=== PATIENT | female | born 1955 | race Caucasian/White ===

== ENCOUNTER → 2016-06-30 | Outpatient (CLI) | payer MEDICAID | LOC: OD 10:35 | PROVIDERS: ATTEND Physician Assistant | DX: R10.30 Lower abdominal pain, unspecified (principal) | CPT/HCPCS: 74000 ==

== ENCOUNTER 2016-07-21 07:13 | Day surgery (SDC) | payer MEDICAID ==
[~2016-07-21 07:13] MED LIST: PROPOFOL INJ 200 MG/20 ML VIAL IV ONE
[2016-07-21] MEDS ORDERED: LIDOCAINE 2% INJ-PF (20 MG/ML) 10 ML AMPUL ONE (08:44)
[2016-07-21] MEDS ORDERED: ONDANSETRON HCL INJ/PF 4 MG/2 ML SDV ONE (08:45)
[2016-07-21] MEDS ORDERED: PROPOFOL INJ 200 MG/20 ML VIAL IV ONE (08:45)
[2016-07-21] MEDS ORDERED: MORPHINE SULFATE 10 MG/ML INJ IV PRN (10:31)
[2016-07-21] MEDS ORDERED: MEPERIDINE HCL/PF INJ 25 MG/1 ML DISP.SYRIN IV PRN (10:31)
[2016-07-21] MEDS ORDERED: FENTANYL CITRATE INJ/PF 100 MCG/2 ML AMPUL IV PRN ×3 (10:31)
[2016-07-21] MEDS ORDERED: DIPHENHYDRAMINE HCL 50 MG/ML VIAL IV PRN (10:31)
[2016-07-21] MEDS ORDERED: PROMETHAZINE HCL INJ 25 MG/1 ML VIAL IV PRN ×2 (10:31)
--- NOTE | 2016-07-21 10:38 | Operative Report ---
Operative Report DATE OF SURGERY: 07/21/16 Operative Report: The risks, benefits and alternatives of the procedure including risks of bleeding, perforation requiring surgery are explained to the patient detail and informed consent is obtained. Patient is taken back to the operating room , she is placed in the left lateral decubital position. Time out is called. sedation medications are provided by anesthesia A rectal examination is done Scope scope was placed and advance to the cecum. Cecum is identified by the usual anatomical landmarks including the ileocecal valve as well as the appendiceal office. Prep essentially pretty good. Photo documentations obtained. The scope was then sequentially pulled back via the various segments of the colon including the ascending colon, hepatic flexure, transverse colon, splenic flexure, descending colon and finally into the rectosigmoid colon. Retroflexion maneuvers performed. Patient has a very redundant, adynamic colon. PREOPERATIVE DIAGNOSIS: Change of bowel habits, chronic constipation. Previous colonoscopy incomplete. Rule out lesion on the right side of the colon POSTOPERATIVE DIAGNOSIS: Mild inflammation noted on the ileocecal valve otherwise normal colonoscopy except for what is mentioned above. No AVMs, diverticulosis noted. Internal hemorrhoids are visualized. OPERATION: Colonoscopy with biopsy SURGEON: DEDE DORANTES ANESTHESIA: LMAC TISSUE REMOVED OR ALTERED: Colon specimens times to obtained COMPLICATIONS: None. ESTIMATED BLOOD LOSS: none. INTRAOPERATIVE FINDINGS: As described above. PROCEDURE: Patient tolerated the procedure well. No immediate postprocedure complications are noted. Patient is discharged in good condition. Discharge date 07/21/2016. Discharge diet: Regular. Discharge activity: Regular. Follow-up in 2-3 weeks to discuss findings. Patient is instructed to call the office or proceed to the emergency room after any further problems or questions. We'll follow-up on biopsy
[2016-07-21] MEDS ORDERED: PROMETHAZINE HCL INJ 25 MG/1 ML VIAL INJ PRN (10:45)
[2016-07-21] MEDS ORDERED: SIMETHICONE 80 MG TAB.CHEW PO PRN (10:45)
[2016-07-21] MEDS ORDERED: ACETAMINOPHEN 325 MG TABLET PO PRN (10:45)
[2016-07-21 12:53] VITALS: BP 105/67
== END 2016-07-21 12:38 | disposition home or self-care (01) ==
LOC: OROUT 07:13
PROVIDERS: ATTEND Internal Medicine Gastroenterology
PROC: 0DBF8ZX Excision of Right Large Intestine, Via Natural or Artificial Opening Endoscopic, Diagnostic (ICD-10-PCS; principal; 2016-07-21 09:15)
DX: K62.89 Other specified diseases of anus and rectum (principal); T40.2X5A Adverse effect of other opioids, initial encounter; K59.03 Drug induced constipation; Y92.9 Unspecified place or not applicable; K52.9 Noninfective gastroenteritis and colitis, unspecified; K64.8 Other hemorrhoids; I10 Essential (primary) hypertension; L40.9 Psoriasis, unspecified; Z88.6 Allergy status to analgesic agent; Z88.0 Allergy status to penicillin; Z88.8 Allergy status to other drugs, medicaments and biological substances; Z79.899 Other long term (current) drug therapy; Z87.891 Personal history of nicotine dependence
CPT/HCPCS: 45380; 88305 ×2; J2405; J2704; J3490; 810

== ENCOUNTER 2016-11-23 18:36 | Emergency (ER) | payer MEDICAID ==
[2016-11-23] MEDS ORDERED: ONDANSETRON 4 MG TAB.RAPDIS PO ONE (19:42)
[2016-11-23] MEDS ORDERED: MORPHINE SULFATE 10 MG/ML INJ IM ONE (19:42)
[2016-11-23 20:29] LABS: ABSOLUTE MONOCYTES (AUTO) 0.8 10^3/uL (0.1-1.4); ABSOLUTE NEUT (AUTO) 14.9 10^3/uL (1.7-8.2); BASOPHILS % (AUTO) 0.3 % (0-2); EOSINOPHILS % (AUTO) 0.1 % (0-6); HEMATOCRIT 39.6 % (36.0-47.0); HEMOGLOBIN 12.6 g/dL (12.0-15.5); HGB HCT DIFFERENCE -1.8; MEAN CORPUSCULAR HEMOGLOBIN 27.4 pg (27.0-33.4); MEAN CORPUSCULAR HGB CONC 31.9 g/dL (32.0-36.0); MEAN CORPUSCULAR VOLUME 86 fl (80-97); MONOCYTES % (AUTO) 4.7 % (3-13); RED BLOOD COUNT 4.62 10^6/uL (3.72-5.28); RED CELL DISTRIBUTION WIDTH 15.1 % (11.5-14.0); SEGMENTED NEUTROPHILS % (AUTO) 88.9 % (42-78); WHITE BLOOD COUNT 16.7 10^3/uL (4.0-10.5)
[2016-11-23 20:45] LABS: ALANINE AMINOTRANSFERASE 22 U/L (9-52); ALBUMIN 4.8 g/dL (3.5-5.0); ALKALINE PHOSPHATASE 126 U/L (38-126); ANION GAP 15 (5-19); ASPARTATE AMINO TRANSFERASE 18 U/L (14-36); BILIRUBIN,DIRECT 0.4 mg/dL (0.0-0.4); BILIRUBIN,TOTAL 0.7 mg/dL (0.2-1.3); BLOOD UREA NITROGEN 13 mg/dL (7-20); CALCIUM 9.8 mg/dL (8.4-10.2); CARBON DIOXIDE 23 mmol/L (22-30); CHLORIDE 106 mmol/L (98-107); CREATININE RESULT 0.91 mg/dL (0.52-1.25); GLUCOSE 124 mg/dL (75-110); POTASSIUM 4.2 mmol/L (3.6-5.0); SODIUM 143.8 mmol/L (137-145); TOTAL PROTEIN 8.6 g/dL (6.3-8.2)
--- NOTE | 2016-11-23 20:48 | RADIOLOGY REPORT (SQ) ---
EXAM DESCRIPTION: CT LTD RENAL STONE PROTOCOL ON COMPLETED DATE/TIME: 11/23/2016 8:30 pm REASON FOR STUDY: left flank and abd pain COMPARISON: None. TECHNIQUE: CT scan of the abdomen and pelvis performed without intravenous or oral contrast. Images reviewed with lung, soft tissue, and bone windows. Reconstructed coronal and sagittal MPR images revi ewed. All images stored on PACS. All CT scanners at this facility use dose modulation, iterative reconstruction, and/or weight based d osing when appropriate to reduce radiation dose to as low as reasonably achievable (ALARA). [facility]: Dose Right [facility]: CareDose [facility]: Dose Right [facility]: Teradose 4D [facility]: [email or web address] RADIATION DOSE: 6.13mGy. LIMITATIONS: None. FINDINGS: LOWER CHEST: No significant findings. No nodules or infiltrates. NON-CONTRASTED LIVER, SPLEEN, ADRENALS: Evaluation limited by lack of IV contrast. No identified sign ificant masses. PANCREAS: No masses. No peripancreatic inflammatory changes. GALLBLADDER: There is a single gallstone demonstrated. RIGHT KIDNEY AND URETER: No suspicious masses. Assessment limited by lack of IV contrast. No signif icant calcifications. No hydronephrosis or hydroureter. LEFT KIDNEY AND URETER: No suspicious masses. Assessment limited by lack of IV contrast. No signifi cant calcifications. There is left-sided hydronephrosis there is perinephric and periureteral stran ding. Findings suggest high-grade stenosis although again no calcifications are identified. AORTA AND RETROPERITONEUM: No aneurysm. No retroperitoneal masses or adenopathy. BOWEL AND PERITONEAL CAVITY: No obvious masses or inflammatory changes. No free fluid. APPENDIX: Normal. PELVIS, BLADDER, AND ABDOMINAL WALL:No abnormal masses. No free fluid. Bladder normal. BONES: No significant findings. OTHER: No other significant finding. IMPRESSION: Left-sided mild hydronephrosis with fairly extensive perinephric and periureteral strand ing. No renal or ureteral stones are identified. TECHNICAL DOCUMENTATION: JOB ID: [id number] Quality ID # [id number]: Final reports with documentation of one or more dose reduction techniques (e.g., Au tomated exposure control, adjustment of the mA and/or kV according to patient size, use of iterative reconstruction technique) 2010 [employer]- All Rights Reserved
[2016-11-23 21:05] LABS: APPEARANCE,URINE CLOUDY; BILIRUBIN,URINE NEGATIVE (NEGATIVE); GLUCOSE, URINE NEGATIVE (NEGATIVE); KETONES,URINE 20 mg/dL (NEGATIVE); LEUKOCYTE ESTERASE,URINE LARGE (NEGATIVE); NITRITE,URINE NEGATIVE (NEGATIVE); PROTEIN,URINE 100 mg/dL (NEGATIVE); URINE SPECIFIC GRAVITY 1.017; UROBILINOGEN,URINE NEGATIVE mg/dL (<2.0)
[2016-11-23] MEDS ORDERED: NORMAL SALINE 1000 ML 1,000 ML IV ONE (22:46)
[2016-11-23] MEDS ORDERED: CEFTRIAXONE INJ 1000 MG VIAL IV ONE (22:46)
--- NOTE | 2016-11-23 23:40 | ER Document Report ---
ED General - General Chief Complaint: Flank Pain Stated Complaint: BACK AND LEFT FLANK PAIN,NAUSEA Time Seen by Provider: 11/23/16 19:37 Notes: Patient is a 61-year-old female presents with complaint of left back pain that radiates to the left flank. She says that she had urinary urgency and frequency. No dysuria. No fevers. Positive vomiting. No diarrhea. No anterior abdominal pain. No other complaints at this time. TRAVEL OUTSIDE OF THE [place] IN LAST 30 DAYS: No - Related Data Allergies/Adverse Reactions: aspirin [Aspirin] Allergy (Severe, Verified 07/21/16 07:25) Coma NSAIDS (Non-Steroidal Anti-Inflamma [Nsaids] Allergy (Severe, Verified 07/21/16 07:25) trouble breathing rofecoxib [From Vioxx] Allergy (Severe, Verified 07/21/16 07:25) trouble breathing succinylcholine chloride [From Anectine] Allergy (Severe, Verified 07/21/16 07: 25) Coma Penicillins Allergy (Intermediate, Verified 07/21/16 07:25) tounge swelling, hives Past Medical History - Social History Smoking Status: Never Smoker Chew tobacco use (# tins/day): No Frequency of alcohol use: None Drug Abuse: None Family History: None - Past Medical History Cardiac Medical History: Denies: Hx Coronary Artery Disease, Hx Heart Attack, Hx Hypertension Pulmonary Medical History: Reports: Hx Pneumonia - In the past Denies: Hx Asthma, Hx Bronchitis, Hx COPD Neurological Medical History: Denies: Hx Cerebrovascular Accident, Hx Seizures Renal/ Medical History: Denies: Hx Peritoneal Dialysis Musculoskeltal Medical History: Reports Hx Arthritis - GENERALIZED Psychiatric Medical History: Reports: Hx Depression Past Surgical History: Reports: Hx Hysterectomy, Hx Orthopedic Surgery - Right shoulder - Immunizations Hx Diphtheria, Pertussis, Tetanus Vaccination: Yes Review of Systems - Review of Systems Notes: My Normal Review Basic REVIEW OF SYSTEMS: CONSTITUTIONAL : Denies fever, chills, or sweats. Denies recent illness. EENT: Denies eye, ear, throat, or mouth pain or symptoms. Denies nasal or sinus congestion. CARDIOVASCULAR: Denies chest pain. RESPIRATORY: Denies cough, cold, or chest congestion. Denies shortness of breath, difficulty breathing, or wheezing. GASTROINTESTINAL: Denies abdominal pain. Vomiting. GENITOURINARY: Urinary frequency. MUSCULOSKELETAL: Back pain SKIN: Denies rash or skin lesions. NEUROLOGICAL: Denies altered mental status or loss of consciousness. Denies headache. Denies weakness or paralysis or loss of use of either side. Denies problems with gait or speech. Denies sensory or motor loss. ALL OTHER SYSTEMS REVIEWED AND NEGATIVE. Physical Exam - Vital signs Vitals: Temp Pulse Resp BP Pulse Ox 98.5 F 74 22 H 156/94 H 98 11/23/16 19:09 11/23/16 19:09 11/23/16 19:09 11/23/16 19:09 11/23/16 19:09 - Notes Notes: General Appearance: Well nourished, alert, cooperative, no acute distress, no obvious discomfort. Well Appearing. Vitals: reviewed, See vital signs table. Head: no swelling or tenderness to the head Eyes: PERRL, EOMI, Conjuctiva clear Mouth: No decreasd moisture Lungs: No wheezing, No rales, No rhonci, No accessory muscle use, good air exchange bilaterally. Heart: Normal rate, Regular rythm, No murmur, no rub Back: Positive Olivier's sign on the left. Abdomen: Normal BS, soft, No rigidity, No abdominal tenderness, No guarding, no rebound, no abdominal masses, no organomegaly Extremities: strength 5/5 in all extremities, good pulses in all extremities, no swelling or tenderness in the extremities, no edema. Skin: warm, dry, appropriate color, no rash Neuro: speech clear, oriented x 3, normal affect, responds appropriately to questions. Course - Vital Signs Vital signs: Temp Pulse Resp BP Pulse Ox 98.5 F 74 22 H 156/94 H 98 11/23/16 19:09 11/23/16 19:09 11/23/16 19:09 11/23/16 19:09 11/23/16 19:09 - Laboratory Result Diagrams: 11/23/16 20:07 11/23/16 20:07 Laboratory results interpreted by me: 11/23/16 11/23/16 11/23/16 20:07 20:07 20:07 WBC 16.7 H MCHC 31.9 L RDW 15.1 H Seg Neutrophils % 88.9 H Lymphocytes % 6.0 L Absolute Neutrophils 14.9 H Glucose 124 H Total Protein 8.6 H Urine Protein 100 H Urine Ketones 20 H Urine Blood MODERATE H Ur Leukocyte Esterase LARGE H - Transfer of Care Notes: 11/24/16 00:07 Received IV fluids. Her vital signs remained normal. She continues to be nontoxic-appearing and says she feels improved. Patient will be treated for pyelonephritis. She is encouraged to return to ER immediately if she has worsening pain, fevers, vomiting, or appears unwell. Patient agrees with plan and will be discharged home. Dictation of this chart was performed using voice recognition software; therefore, there may be some unintended grammatical errors. Discharge - Discharge Clinical Impression: Pyelonephritis Condition: Good Disposition: HOME, SELF-CARE Additional Instructions: PYELONEPHRITIS: Your evaluation shows evidence of pyelonephritis. This is an infection in the kidney. Typical symptoms are fever, pain in the flank, pain on urination, and frequent urination. Many cases of pyelonephritis can be treated at home. Hospital care may be necessary for patients who are very ill, or elderly or . Pyelonephritis is treated with antibiotics. Be sure to take all the medication as prescribed. Drink plenty of liquids (about three quarts per day) . You may take acetaminophen for fever. You should feel significantly improved within two days. You should have a recheck of your urine in about one week to insure that the infection is gone. Return for a re-examination if your symptoms worsen in any way -- such as high fever, shaking chills, severe weakness or dizziness, severe pain, or inability to pass your urine. ANTINAUSEA MEDICATION: You have been given a medication to suppress nausea and vomiting. This type of medication can be given as a shot, pill, or suppository. It will usually last for many hours. Pills and shots usually last six to eight hours, suppositories last about 12 hours. For the typical illness, only one or two doses of the medication may be necessary. Mild lightheadedness may occur. This type of medicine can cause drowsiness. Do not drive or operate dangerous machinery while under its influence. Do not mix with alcohol. See your doctor at once if you have muscle spasms or tightness, or uncontrollable motions (particularly of the neck, mouth, or jaw). Persistent vomiting or severe lightheadedness should also be evaluated by the physician. ANTIBIOTIC THERAPY: You have been given an antibiotic prescription. It's important that you take all the medication, unless instructed otherwise by your physician. Failure to complete the entire course can result in relapse of your condition. Common side effects of antibiotics include nausea, intestinal cramping, or diarrhea. Women may develop vaginal yeast infections, and babies can get yeast (thrush) in the mouth following the use of antibiotics. Contact your physician if you develop significant side effects from this medication. Allergy to this antibiotic can result in hives, wheezing, faintness, or itching. If symptoms of allergy occur, stop the medication and call the doctor. ROCEPHIN: You have been given an injection of an antibiotic called Rocephin ( ceftriaxone). Sometimes the injection must be combined with antibiotic pills. For some infections, such as an uncomplicated ear infection, Rocephin provides all the antibiotic that's needed. The antibiotic will be in your body for about two days. For serious infections, we usually repeat doses of Rocephin daily. Side effects are very unusual following a shot. Women may develop vaginal yeast infections, and babies can get yeast (thrush) in the mouth following the use of antibiotics. Contact your physician if you have symptoms with this medication. Allergy to this antibiotic can result in hives, wheezing, faintness, or itching. If symptoms of allergy occur, call the doctor at once. CEPHALEXIN: The antibiotic you've been prescribed is a member of the cephalosporin class. This type of antibiotic covers a wide variety of infections, including those of the skin, lungs, and urinary tract. It's useful for staph infections. This antibiotic is slightly similar to the penicillin family. In rare cases , a person who is allergic to penicillin will also be allergic to this medication. If you have had a severe allergic reaction to penicillin, and have not taken this antibiotic since that time, notify your doctor. Antibiotics which cover many germs ("broad spectrum" antibiotics) are more likely to cause diarrhea or "yeast" infections. Women prone to vaginal yeast problems may suffer an attack after taking this antibiotic. In infants, oral thrush (white spots "stuck" on the cheek) or yeast diaper rash may result. See your doctor if these problems occur. Call at once if you develop itching, hives , shortness of breath, or lightheadedness. USE OF ACETAMINOPHEN (Tylenol): Acetaminophen may be taken for pain relief or fever control. It's much safer than aspirin, offering a wider range of "safe" dosages. It is safe during . Some brand names are Tylenol, Panadol, Datril, Anacin 3, Tempra, and Liquiprin. Acetaminophen can be repeated every four hours. The following are maximum recommended dosages: >89 pounds or adults 650 mg to 900 mg Acetaminophen can be repeated every four hours. Maximum dose not to exceed 4000 mg a day. FOLLOW-UP CARE: If you have been referred to a physician for follow-up care, call the physician s office for an appointment as you were instructed or within the next two days. If you experience worsening or a significant change in your symptoms, notify the physician immediately or return to the Emergency Department at any time for re-evaluation. Please return to the ER immediately if you have worsening pain, fevers, intractable vomiting, or feel unwell. Please return to the ER or follow up with your doctor in 2 days for reevaluation. Prescriptions: Cephalexin Monohydrate [Keflex 500 mg Capsule] 500 mg PO BID #20 capsule Ondansetron [Zofran Odt 4 mg Tablet] 1 tab PO Q4H PRN #15 tab.rapdis PRN Reason: For Nausea/Vomiting Referrals: YOSEF JIN PA-C [Primary Care Provider] - 11/26/16
[2016-11-24 00:23] VITALS: BP 137/82
== END 2016-11-24 00:22 | disposition home or self-care (01) ==
LOC: ER 18:36
DX: N12 Tubulo-interstitial nephritis, not specified as acute or chronic (principal); R35.0 Frequency of micturition; R39.15 Urgency of urination; R11.10 Vomiting, unspecified; M54.9 Dorsalgia, unspecified; Z88.6 Allergy status to analgesic agent; Z88.8 Allergy status to other drugs, medicaments and biological substances; Z88.0 Allergy status to penicillin
CPT/HCPCS: 99284; 96372; 96361; 96374; 36415; 87086; 85025; 87088; 80053; 81001; 87186; 76380; S0119; J2270; J0696; J7030

== ENCOUNTER → 2016-12-21 | Outpatient (CLI) | payer MEDICAID ==
--- NOTE | 2016-12-21 17:30 | WOMENS IMAGING REPORT ---
EXAM DESCRIPTION: BILAT SCREENING MAMMO W/CAD COMPLETED DATE/TIME: 12/21/2016 1:10 pm REASON FOR STUDY: Z12.31, ROUTINE SCREENING MAMMO Z12.31 ENCNTR SCREEN MAMMOGRAM FOR MALIGNANT NEOP LASM OF FIDE COMPARISON: Multiple since 2009 TECHNIQUE: Standard craniocaudal and mediolateral oblique views of each breast recorded using digita l acquisition. LIMITATIONS: None. FINDINGS: No masses, calcifications or architectural distortion. No areas of suspicion. Read with the assistance of CAD. .[facility] - R2 Cenova Version 1.3 .[facility] - R2 Cenova Version 1.3 .[facility] - R2 Cenova Version 2.4 .[facility] - R2 Cenova Version 2.4 .[facility] - R2 Digital Asset Specialist Version 9.2 IMPRESSION: NORMAL MAMMOGRAM. BIRADS 1. BREAST DENSITY: c. The breasts are heterogeneously dense, which may obscure small masses. BIRAD: 1 NEGATIVE RECOMMENDATION: ROUTINE SCREENING Please consider yearly bilateral screening tomosynthesis in December 2017 COMMENT: The patient has been notified of the results by letter per [place] requirements. Additional no tification policies are in place for contacting patient with suspicious or incomplete findings. Quality ID #[id number]: The [employer] recommends an annual screening mammogram for women aged 40 years or over. This facility utilizes a reminder system to ensure that all patients receive reminder letters, and/or direct phone calls for appointments. This includes reminders for routine scr eening mammograms, diagnostic mammograms, or other Breast Imaging Interventions when appropriate. Th is patient will be placed in the appropriate reminder system. The [employer] ([employer]) has developed recommendations for screening MRI of the breast s in certain patient populations, to be used in conjunction with mammography. Breast MRI surveillanc e may be appropriate for women with more than 20% lifetime risk of developing breast cancer as deter mined by genetic testing, significant family history of the disease, or history of mantle radiation f or Hodgkins Disease. ACR Practice Guidelines 2008. TECHNICAL DOCUMENTATION: FINDING NUMBER: (1) ASSESSMENT: (1) JOB ID: [id number] [employer]- All Rights Reserved
== END ==
LOC: WI 09:08
PROVIDERS: ATTEND Physician Assistant
DX: Z12.31 Encounter for screening mammogram for malignant neoplasm of breast (principal)
CPT/HCPCS: 77067; G0202

== ENCOUNTER 2017-06-16 13:19 | Emergency (ER) | payer OTHER, MEDICAID ==
[2017-06-16] MEDS ORDERED: LIDOCAINE 5% (700 MG) TRANSDERMAL ADH..PATCH TP ONE (15:21)
[2017-06-16] MEDS ORDERED: ACETAMINOPHEN 325 MG TABLET PO ONE (15:21)
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
[2017-06-16 16:38] VITALS: BP 116/75
== END 2017-06-16 16:27 | disposition home or self-care (01) ==
LOC: ER 13:19
DX: S29.012A Strain of muscle and tendon of back wall of thorax, initial encounter (principal); S46.811A Strain of other muscles, fascia and tendons at shoulder and upper arm level, right arm, initial encounter; R51 Headache; M54.2 Cervicalgia; V43.52XA Car driver injured in collision with other type car in traffic accident, initial encounter; Z88.6 Allergy status to analgesic agent; Z88.0 Allergy status to penicillin; Z87.891 Personal history of nicotine dependence; Z90.710 Acquired absence of both cervix and uterus
CPT/HCPCS: 72070; 99284

== ENCOUNTER 2018-05-16 13:12 | Emergency (ER) | payer MEDICAID ==
[2018-05-16] MEDS ORDERED: LIDOCAINE 5% (700 MG) TRANSDERMAL ADH..PATCH TP ONE (14:54)
[2018-05-16] MEDS ORDERED: CYCLOBENZAPRINE HCL 10 MG TABLET PO ONE (14:54)
--- NOTE | 2018-05-16 15:13 | ER Document Report ---
HPI - HPI Patient complains to provider of: back pain Time Seen by Provider: 05/16/18 14:34 Pain Level: 5 Context: Patient is a 63-year-old female presents to the emergency department complaining of right-sided lower back pain radiating to her right lower leg. Patient states she has a history of degenerative disc disease and sciatic nerve pain. States she goes to Dr. House, orthopedics for nerve ablations and potential surgery for her degenerative disc disease. Patient states her orthopedic currently does not want to do surgery at this time. Patient states she also sees Dr. Beth at pain management and she gets hydrocodone 7.5 every month. Patient states she also has Flexeril at home. States she took a Flexeril and her hydrocodone this morning. Patient states on Tuesday she noticed that her chronic right lower back pain radiating to her right lower extremity had gotten worse upon waking up. Patient denies any trauma or injury to the area. Patient denies any urinary retention, urinary or bowel Incontinence. Past medical history: Degenerative disc disease, sciatica, psoriasis, depression Medications: Flexeril, hydrocodone, trazodone, lexapro Allergies: Penicillin, aspirin, nsaids - REPRODUCTIVE Reproductive: DENIES: : Past Medical History - General Information source: Patient - Social History Smoking Status: Unknown if Ever Smoked Family History: None - Past Medical History Cardiac Medical History: Denies: Hx Coronary Artery Disease, Hx Heart Attack, Hx Hypertension Pulmonary Medical History: Reports: Hx Pneumonia - In the past Denies: Hx Asthma, Hx Bronchitis, Hx COPD Neurological Medical History: Denies: Hx Cerebrovascular Accident, Hx Seizures Renal/ Medical History: Denies: Hx Peritoneal Dialysis Musculoskeletal Medical History: Reports Hx Arthritis - GENERALIZED Psychiatric Medical History: Reports: Hx Depression, Hx Post Traumatic Stress Disorder Past Surgical History: Reports: Hx Hysterectomy, Hx Orthopedic Surgery - Right shoulder - Immunizations Hx Diphtheria, Pertussis, Tetanus Vaccination: Yes Vertical Provider Document - CONSTITUTIONAL Agree With Documented VS: Yes Notes: GENERAL: Alert, interacts well. No acute distress. HEAD: Normocephalic, atraumatic. EYES: Pupils equal, round, and reactive to light. Extraocular movements intact. ENT: Oral mucosa moist, tongue midline. NECK: Full range of motion. Supple. Trachea midline. LUNGS: Clear to auscultation bilaterally, no wheezes, rales, or rhonchi. No respiratory distress. HEART: Regular rate and rhythm. No murmur ABDOMEN: Soft, non-tender. Non-distended. Bowel sounds present in all 4 quadrants. EXTREMITIES: Moves all 4 extremities spontaneously. No edema, normal radial and dorsalis pedis pulses bilaterally. No cyanosis. 5 out of 5 strength all 4 extremities BACK: no cervical, thoracic, lumbar midline tenderness. No saddle anesthesia, normal distal neurovascular exam. Pain upon palpation right paraspinal radiating into right buttocks. NEUROLOGICAL: Alert and oriented x3. Normal speech. cranial nerves II through XII grossly intact. PSYCH: Normal affect, normal mood. SKIN: Warm, dry, normal turgor. No rashes or lesions noted. - INFECTION CONTROL TRAVEL OUTSIDE OF THE [place] IN LAST 30 DAYS: No Course - Re-evaluation Re-evalutation: 05/16/18 15:10 Reviewed patient on [facility] and it is found that patient got 7.5 hydrocodone spelled on 04/14/2018. Patient has gotten hydrocodone 7.590 pills total filled every month starting in November of this year. Patient admits to me that 2 days ago she got her hydrocodone refilled again. States she does see pain management for chronic lower back pain. Patient then states she has Lidoderm patches at home and she also took Flexeril upon waking up this morning. I discussed with her at length that I do not feel comfortable giving her hydrocodone in the emergency room for her chronic back pain. Patient states she took one prior to arrival anyway. Discussed with her use of Lidoderm patches, Flexeril, home hydrocodone and a steroid. Discussed with her the importance of moving and stretching to help with her sciatic nerve pain. Discussed with her need to follow-up with pain management and orthopedics. No physical exam signs of cauda equina, no spinal midline tenderness upon palpation. Patient denies any trauma or injury. No need for x-rays at this time. Patient has 5 out of 5 strength all 4 extremities. Patient is non-tachycardic, nonhypertensive, stable for discharge. - Vital Signs Vital signs: Temp Pulse Resp BP Pulse Ox 98.5 F 97 22 H 123/90 H 97 05/16/18 13:24 05/16/18 13:24 05/16/18 13:24 05/16/18 13:24 05/16/18 13:24 Discharge - Discharge Clinical Impression: Lower back pain Qualifiers: Chronicity: chronic Back pain laterality: right Sciatica presence: with sciatica Sciatica laterality: sciatica of right side Qualified Code(s): M54.41 - Lumbago with sciatica, right side; G89.29 - Other chronic pain; G89.29 - Other chronic pain Condition: Stable Disposition: HOME, SELF-CARE Instructions: Warm Packs ([facility]), Low Back Pain ([facility]), Sciatica ([facility]) Prescriptions: Prednisone [Deltasone 20 mg Tablet] 3 tab PO DAILY 5 Days tablet
[2018-05-16 15:31] VITALS: BP 137/79
== END 2018-05-16 15:31 | disposition home or self-care (01) ==
LOC: ER 13:12
DX: G89.29 Other chronic pain (principal); M54.41 Lumbago with sciatica, right side; Z79.891 Long term (current) use of opiate analgesic; F32.9 Major depressive disorder, single episode, unspecified; Z79.899 Other long term (current) drug therapy; Z88.0 Allergy status to penicillin; Z88.6 Allergy status to analgesic agent; Z88.8 Allergy status to other drugs, medicaments and biological substances
CPT/HCPCS: 99283; J3490 ×2

== ENCOUNTER → 2020-02-26 | Outpatient (CLI) | payer MEDICARE, MEDICAID ==
--- NOTE | 2020-02-26 10:36 | WOMENS IMAGING REPORT ---
EXAM DESCRIPTION: 3D SCREENING MAMMO BILAT IMAGES COMPLETED DATE/TIME: 02/26/2020 10:10 am REASON FOR STUDY: Z12.31 ENCNTR SCREEN MAMMOGRAM FOR MALIGNANT NEOPLASM OF BREAST Z12.31 ENCNTR SCR EEN MAMMOGRAM FOR MALIGNANT NEOPLASM OF FIDE COMPARISON: Multiple since 2010 EXAM PARAMETERS: Standard craniocaudal and mediolateral oblique views of each breast recorded using digital acquisition and breast tomosynthesis. Read with the assistance of CAD. .[facility] - [employer] Operator Version 9.2 LIMITATIONS: None. FINDINGS: Findings present which are benign by mammographic criteria. No suspicious masses, calcific ations or architectural distortion. Pertinent benign findings: Benign calcifications bilaterally Benign mammographic findings may include one or more of the following: Smooth masses, popcorn/rim/coa rse calcifications, asymmetries, post-procedure changes, and lesions with long-standing stability. IMPRESSION: BENIGN MAMMOGRAPHIC FINDINGS. BIRADS 2 BREAST DENSITY: b. There are scattered areas of fibroglandular density. BIRAD: ASSESSMENT: 2 BENIGN FINDING(S) RECOMMENDATION: ROUTINE SCREENING Please continue yearly bilateral screening mammography/tomosynthesis in February 2021 COMMENT: The patient has been notified of the results by letter per MQSA requirements. Additional no tification policies are in place for contacting patient with suspicious or incomplete findings. Quality ID #[id number]: The [employer] recommends an annual screening mammogram for women aged 40 years or over. This facility utilizes a reminder system to ensure that all patients receive reminder letters, and/or direct phone calls for appointments. This includes reminders for routine scr eening mammograms, diagnostic mammograms, or other Breast Imaging Interventions when appropriate. Th is patient will be placed in the appropriate reminder system. TECHNICAL DOCUMENTATION: FINDING NUMBER: (1) ASSESSMENT: (1) JOB ID: [id number] [employer]- All Rights Reserved Reading location - IP/workstation name: [email or web address]
== END ==
LOC: WI 09:30
PROVIDERS: ATTEND Nurse Practitioner Family
DX: Z12.31 Encounter for screening mammogram for malignant neoplasm of breast (principal)
CPT/HCPCS: 77063; 77067